=== PATIENT | male | born 1975 | race Caucasian/White ===

== ENCOUNTER 2022-02-20 09:45 | Emergency (ER) | payer SELFPAY ==
[~2022-02-20] VITALS: Ht 177.8 cm; Wt 100.0 kg
[2022-02-20] MEDS ORDERED: ACETAMINOPHEN 325MG TABLET PO STA (11:59)
[2022-02-20] MEDS ORDERED: CEFTRIAXONE 1 G PREMIX 50 ML IV ONE (12:00)
[2022-02-20] MEDS ORDERED: SODIUM CHLORIDE 0.9% 1,000 ML IV ONE (12:00)
[2022-02-20] MEDS ORDERED: KETOROLAC 30MG/ML VIAL IV ONE (12:00)
[2022-02-20] MEDS ORDERED: AMOXICILLIN/POTASSIUM CLAVULANATE 875/125MG TAB PO ONE (12:00)
[2022-02-20 15:20] LABS: BASOPHILS % 0.3 % (0.0-2.0); EOSINOPHILS % 2.8 % (0.0-5.0); HEMATOCRIT. 44.9 % (42.0-52.0); HEMOGLOBIN. 15.4 g/dL (14.0-18.0); LYMPHOCYTES % 14.8 % (20.0-50.0); MEAN CORPUSCULAR HEMOGLOBIN 28.3 pg (28.0-32.0); MEAN PLATELET VOLUME 8.3 fl (7.4-10.4); MONOCYTES % 11.1 % (2.0-8.0); PLATELET 304 x1000/uL (130-400); RED BLOOD CELL COUNT 5.42 mill/uL (4.7-6.1); RED CELL DISTRIBUTION WIDTH 14.8 % (11.6-14.6)
[2022-02-20 15:24] LABS: CHLORIDE 102 mEq/L (98-107)
[2022-02-20] MEDS ORDERED: ACETAMINOPHEN 325MG TABLET PO NR (16:15)
[2022-02-20] MEDS ORDERED: KETOROLAC 30MG/ML VIAL IV NR (16:15)
[2022-02-20] MEDS ORDERED: CEFTRIAXONE 1 G PREMIX 50 ML IV NR (16:15)
[2022-02-20] MEDS ORDERED: AMOX1TAB16 MT (16:52)
[2022-02-20] MEDS ORDERED: IBUP-2028 MT (16:52)
[2022-02-20 17:08] VITALS: BP 129/82
== END 2022-02-20 18:22 | disposition home or self-care (01) ==
LOC: ER 09:51
DX: K57.32 Diverticulitis of large intestine without perforation or abscess without bleeding (principal); R94.5 Abnormal results of liver function studies; R00.0 Tachycardia, unspecified; D72.829 Elevated white blood cell count, unspecified
CPT/HCPCS: 36415; 74176; 80053; 83605; 83690; 85025; 87040; 96361; 96365; 96375; 99284; J0696; J1885; J7030